=== PATIENT | male | born 1945 | race Hispanic/Latino ===

== ENCOUNTER 2016-10-14 09:14 | Outpatient (CLI) | payer MEDICARE, SELFPAY | END 2016-10-14 09:15 | disposition home or self-care (01) | LOC: NAVSJIPCSP 09:14 | PROVIDERS: ATTEND Urology | DX: R97.20 Elevated prostate specific antigen [PSA] (principal) | CPT/HCPCS: 36415; 84153 ==

== ENCOUNTER 2017-01-22 08:54 | Outpatient (CLI) | payer MEDICARE ==
[2017-01-22 12:53] LABS: Cardiac Risk 4.1 (Less than 4.5)
== END 2017-01-22 08:55 | disposition home or self-care (01) ==
LOC: NAVSJIPCSP 08:54
PROVIDERS: ATTEND Internal Medicine
DX: E78.5 Hyperlipidemia, unspecified (principal)
CPT/HCPCS: 36415; 80061

== ENCOUNTER 2022-11-27 18:32 | Emergency (ER) | payer MEDICARE, OTHER ==
[2022-11-27 19:29] LABS: Bilirubin Negative (Negative); Blood, Urine Trace (Negative); Clarity Clear (Clear); Glucose, Urine (Dipstick) Negative (Negative); Ketone, Urine Negative (Negative); Leukocyte Trace (Negative); Nitrite Negative (Negative); Protein, Urine (Dipstick) Negative (Neg-Trace); Urobilinogen 0.2 mg/dL (Less than 2); pH, Urine 6.5 (5.0-9.0)
[2022-11-27 19:32] LABS: CAUTI Indications for Culture Dysuria,urgency,freq
[2022-11-27 19:33] LABS: Bacteria/HPF Rare-Few HPF (None Seen); RBC/HPF 0-3 HPF (0-3); Squamous Epithelial None Seen HPF (0-3); WBC/HPF 0-3 HPF (0-3)
[2022-11-27 19:34] LABS: Urine Culture Reflex No No
[2022-11-27] MEDS ORDERED: Doxazosin 2 MG TAB PO SCH (20:00)
== END 2022-11-27 20:04 | disposition home or self-care (01) ==
LOC: NAV ERS 18:32
DX: N40.1 Benign prostatic hyperplasia with lower urinary tract symptoms (principal); R33.8 Other retention of urine
CPT/HCPCS: 51798; 81001